=== PATIENT | female | born 1960 | race Caucasian/White ===

== ENCOUNTER → 2018-04-24 | Emergency (ER) | payer OTHER ==
[~2018-04-24] VITALS: Ht 160 cm; Wt 68.2 kg
[~2018-04-24] MED LIST: ARIP2 PO; ATOR10TA84 PO; CLON1 PO; DULO60CA44 PO; FENT-77 TD; HYDR-305 PO; HYDROCODONE/ACETAMINOPHEN 5-325 MG TABLET PO ONE
[2018-04-24 10:02] VITALS: BP 105/72
== END | disposition home or self-care (01) ==
LOC: EMS 07:12
DX: S52.502A Unspecified fracture of the lower end of left radius, initial encounter for closed fracture (principal); E78.00 Pure hypercholesterolemia, unspecified; F17.210 Nicotine dependence, cigarettes, uncomplicated; W01.0XXA Fall on same level from slipping, tripping and stumbling without subsequent striking against object, initial encounter; Y93.89 Activity, other specified; Y92.89 Other specified places as the place of occurrence of the external cause; Y99.8 Other external cause status
CPT/HCPCS: 99285